=== PATIENT | female | born 1950 | race Caucasian/White ===

== ENCOUNTER 2016-09-09 20:11 | Emergency (ER) | payer MEDICARE, OTHER ==
[~2016-09-09] VITALS: Ht 162.6 cm; Wt 47.2 kg
--- NOTE | ~2016-09-09 | CR173 ---
[facility]. [facility] A Service of [facility] RADIOLOGY TEXT RESULTS PATIENT: LUIS MIGUEL SAAB LOCATION: SED : 46 UNIT #: [id number] AGE: [address]: AWILDA WHITFIELD SEX: F ORDER DR: [id number] [place] [id number] E MR#: [id number] Acc #: [id number] NAME: LUIS MIGUEL SAAB : 1950 SEX: F STUDY DATE/TIME: 09/09/2016 20:57 UNIT: SED ROOM: STUDY DESCRIPTION: CR Knee 3 Views Rt Attending Physician: Awilda Whitfield Aprn Ordering Physician: Awilda Whitfield Aprn Primary Care Physician: Cesilia Ray A.P.R.N. MEDICAL IMAGING REPORT This report is preliminary unless electronic signature is present. EXAM Right knee series 09/09/2016 HISTORY Pain. Knee popped out. 3 days ago. Anterior and lateral knee pain. FINDINGS AP, lateral and sunrise views of the right knee are presented. Diminished bony mineralization. Mild narrowing all three joint space compartments slightly more pronounced in the medial and patellofemoral joint space compartments. No fracture. Small effusion in suprapatellar recess. No soft tissue defect, subcutaneous air or radiodense foreign body. If it would assist in patient management, knee could be further evaluated with elective MRI, if the patient is a candidate. Dictated by... Joe Rodrigues M.D. THIS IS AN ELECTRONICALLY VERIFIED REPORT Joe Rodrigues M.D. at 09/10/2016 6:52 PM ASH/mio TD: 09/10/2016 11:00 JOB #: [id number] MEDICAL IMAGING REPORT Page 1 of 1
[~2016-09-09 20:11] MED LIST: AMOXICILLIN500 M1 PO; AURALGAN OTIC S14 ML OT; FISH OIL 1,01 CAP.EC PO; LORTAB 7.5-5001 TAB PO; METHADONE PO; METHADOSE10 MG PO; OFLOXACIN5 M1; PSEUDOEPHEDRINE30 M1
[2016-09-09] MEDS ORDERED: GABAPENTIN300 MG PO (20:31)
[2016-09-09] MEDS ORDERED: VICODIN ES 7.51 EAC1 PO (20:31)
[2016-09-09] MEDS ORDERED: METHADONE HCL10 MG PO (20:32)
== END 2016-09-09 22:33 | disposition home or self-care (01) ==
LOC: SED 20:11
DX: M25.561 Pain in right knee (principal); E11.9 Type 2 diabetes mellitus without complications; F17.210 Nicotine dependence, cigarettes, uncomplicated; Z90.710 Acquired absence of both cervix and uterus; Z88.5 Allergy status to narcotic agent; Z79.899 Other long term (current) drug therapy
CPT/HCPCS: 73562; 99283